=== PATIENT | male | born 1955 | race Two or more races ===

== ENCOUNTER → 2023-07-23 | Day surgery (SDC) | payer MEDICARE, OTHER ==
[~2023-07-23] MED LIST: ACETAMINOPHEN 325 MG TABLET PO PRN; FAMOTIDINE/PF INJ 20 MG/2 ML VIAL IV ONE; FENTANYL PF 100MCG/2ML AMPUL ONE; HYDROMORPHONE 1 MG/1 ML DISP.SYRIN IV PRN; IV NS 0.9% 1,000 ML IV PRN; LIDOCAINE 2%-EPI 1:100,000 30 ML VIAL ONE; LISI40TA13 PO; MIDAZOLAM HCL 2 MG/2ML VIAL ONE; Magnesium 1 GM/2 ML VIAL ONE; ONDANSETRON HCL/PF 4 MG/2 ML VIAL IVP PRN; OXYMETAZOLINE HCL NASAL SPRAY 30 ML BOTTLE NS ONE; ROCURONIUM BROMIDE 50 MG/5 ML ONE; VANCOMYCIN 1 GM VIAL ONE; VANCOMYCIN 1 GM in IV D5W 250ml IV SCH; dexaMETHasone SOD PHOSPHATE 10 MG/ML VIAL ONE
== END | disposition home or self-care (01) ==
LOC: DS 10:25
PROVIDERS: ATTEND Dentist Oral and Maxillofacial Surgery
DX: M86.68 Other chronic osteomyelitis, other site (principal); M27.2 Inflammatory conditions of jaws; T84.318A Breakdown (mechanical) of other bone devices, implants and grafts, initial encounter; X58.XXXA Exposure to other specified factors, initial encounter; Y93.89 Activity, other specified; Y92.89 Other specified places as the place of occurrence of the external cause; Y99.8 Other external cause status; I10 Essential (primary) hypertension; E11.9 Type 2 diabetes mellitus without complications; E66.3 Overweight; Z98.890 Other specified postprocedural states; Z79.899 Other long term (current) drug therapy
CPT/HCPCS: 82962-TC; C1713; J1100; J2250; J2405; J2704; J2765; J3010; J3370; J3475; J3490; J7030

== ENCOUNTER 2023-12-23 08:24 | Inpatient (IN) | payer MEDICARE, OTHER ==
[~2023-12-23 08:24] MED LIST changes: -ACETAMINOPHEN 325 MG TABLET PO PRN; -FAMOTIDINE/PF INJ 20 MG/2 ML VIAL IV ONE; -FENTANYL PF 100MCG/2ML AMPUL ONE; -HYDROMORPHONE 1 MG/1 ML DISP.SYRIN IV PRN; -IV NS 0.9% 1,000 ML IV PRN; -LIDOCAINE 2%-EPI 1:100,000 30 ML VIAL ONE; -MIDAZOLAM HCL 2 MG/2ML VIAL ONE; -Magnesium 1 GM/2 ML VIAL ONE; -ONDANSETRON HCL/PF 4 MG/2 ML VIAL IVP PRN; -OXYMETAZOLINE HCL NASAL SPRAY 30 ML BOTTLE NS ONE; -ROCURONIUM BROMIDE 50 MG/5 ML ONE; -VANCOMYCIN 1 GM VIAL ONE; -VANCOMYCIN 1 GM in IV D5W 250ml IV SCH; -dexaMETHasone SOD PHOSPHATE 10 MG/ML VIAL ONE
[2023-12-23 09:10] LABS: BASOPHILS % (AUTO) 0.7 % (0.0-2.0); EOSINOPHILS # (AUTO) 0.1 K/uL (0.0-0.7); EOSINOPHILS % (AUTO) 2.3 % (0.0-6.0); HEMATOCRIT 44 % (39-51); LYMPHOCYTES # (AUTO) 1.5 K/uL (0.8-4.8); LYMPHOCYTES % (AUTO) 27.6 % (20.0-44.0); MEAN CORPUSCULAR HEMOGLOBIN 31 PG (26.0-33.0); MEAN CORPUSCULAR HGB CONC 34 g/dl (31.0-36.0); MEAN CORPUSCULAR VOLUME 91 fL (80-96); MONOCYTES # (AUTO) 0.5 K/uL (0.1-1.30); NEUTROPHILS # (AUTO) 3.3 K/uL (1.8-8.9); NEUTROPHILS % (AUTO) 60.4 % (43.0-81.0); PLATELET COUNT (AUTO) 163 K/uL (150-450); RED BLOOD CELL COUNT(AUTO) 4.88 MIL/uL (4.5-6.0); RED CELL DISTRIBUTION WIDTH 13.4 % (11.5-15.0); WHITE BLOOD COUNT (AUTO) 5.4 K/uL (4.3-11.0)
[2023-12-23 09:16] LABS: INR 1.08 (0.91-1.10); PROTHROMBIN TIME 11.4 SECS (9.2-11.1)
[2023-12-23 09:18] LABS: CREATININE 0.8 mg/dL (0.6-1.3)
[2023-12-23 09:24] LABS: ALBUMIN 3.3 g/dL (3.4-5.0); BILIRUBIN,TOTAL 0.8 mg/dL (0.2-1.0); TOTAL PROTEIN, SERUM 7.2 g/dL (6.4-8.2)
[2023-12-23] MEDS ORDERED: MIDAZOLAM HCL 2 MG/2ML VIAL ONE (09:43)
[2023-12-23] MEDS ORDERED: FENTANYL PF 100MCG/2ML AMPUL ONE (09:43)
[2023-12-23] MEDS ORDERED: ROCURONIUM BROMIDE 50 MG/5 ML ONE (09:43)
[2023-12-23] MEDS ORDERED: FAMOTIDINE/PF INJ 20 MG/2 ML VIAL IV ONE (09:43)
[2023-12-23] MEDS ORDERED: VANCOMYCIN 1 GM VIAL ONE (09:46)
[2023-12-23] MEDS ORDERED: LIDOCAINE 2%-EPI 1:100,000 30 ML VIAL ONE (09:46)
[2023-12-23] MEDS ORDERED: INSULIN REGULAR, HUMAN 100 UNIT/ML 10 ML VIAL ONE ×2 (09:50→09:52)
[2023-12-23] MEDS ORDERED: OXYMETAZOLINE HCL NASAL SPRAY 30 ML BOTTLE NS ONE (10:14)
[2023-12-23 12:30] VITALS: BP 159/86; TEMP 97.7; O2SAT 98
[2023-12-23] MEDS ORDERED: IV NS 0.9% 1,000 ML IV PRN (13:30)
[2023-12-23] MEDS ORDERED: ACETAMINOPHEN 325 MG TABLET PO PRN (13:30)
== END 2023-12-23 13:15 | disposition left against medical advice (07) | DRG 908 ==
LOC: DS 08:24 → MED 12:47
PROVIDERS: ADMIT Dentist Oral and Maxillofacial Surgery; ATTEND Dentist Oral and Maxillofacial Surgery
PROC: 0NUV07Z Supplement Left Mandible with Autologous Tissue Substitute, Open Approach (ICD-10-PCS; principal; 2023-12-23)
PROC: 0NSV04Z Reposition Left Mandible with Internal Fixation Device, Open Approach (ICD-10-PCS; principal; 2023-12-23)
PROC: 0NPW0JZ Removal of Synthetic Substitute from Facial Bone, Open Approach (ICD-10-PCS; principal; 2023-12-23)
DX: T86.831 Bone graft failure (principal); S02.609K Fracture of mandible, unspecified, subsequent encounter for fracture with nonunion; Y83.2 Surgical operation with anastomosis, bypass or graft as the cause of abnormal reaction of the patient, or of later complication, without mention of misadventure at the time of the procedure; I10 Essential (primary) hypertension; E11.9 Type 2 diabetes mellitus without complications; Z91.199 Patient's noncompliance with other medical treatment and regimen due to unspecified reason; Z79.899 Other long term (current) drug therapy; I34.0 Nonrheumatic mitral (valve) insufficiency; X58.XXXA Exposure to other specified factors, initial encounter; Y93.9 Activity, unspecified; Y92.9 Unspecified place or not applicable
CPT/HCPCS: 36415; 71045-TC; 80053-TC; 82962-TC; 85025-TC; 85610-TC; 88305-TC; 88311-TC; G0378; J1100; J1815; J2250; J2405; J2704; J3010; J3370; J3490; J7030